=== PATIENT | male | born 1950 | race Caucasian/White ===

== ENCOUNTER → 2021-12-21 | Outpatient (CLI) | payer MEDICARE ==
--- NOTE | 2021-12-21 15:24 | US ---
EXAMINATION TYPE: US kidneys/renal and bladder DATE OF EXAM: 12/21/2021 COMPARISON: NONE CLINICAL HISTORY: N20.0 CALCULUS OF KIDNEY. Rt flank pain but has stopped. EXAM MEASUREMENTS: Right Kidney: 9.2 x 5.0 x 5.7 cm Left Kidney: 9.4 x 4.9 x 5.9 cm Right Kidney: Anterior medial cortical cystic lesion = 0.6 x 0.6 x 0.4 cm Left Kidney: No hydronephrosis or masses seen Bladder: distended, anechoic Right jet seen There is no evidence for hydronephrosis at this point in time. No nephrolithiasis is seen. [employer]olog [employer] m[facility]aughlin 5 mm exophytic round lesion too small to further characterize presumed benign in the right kidney midpole level. The urinary bladder is satisfactorily distended. Bilateral ureteral jets are not seen. IMPRESSION: No hydronephrosis is noted bilaterally.
== END | disposition home or self-care (01) ==
LOC: RADUSWWP 13:54
PROVIDERS: ATTEND Internal Medicine Geriatric Medicine
DX: N20.0 Calculus of kidney (principal)
CPT/HCPCS: 76770

== ENCOUNTER 2023-03-29 07:58 | Emergency (ER) | payer MEDICARE ==
[2023-03-29 08:18] VITALS: BP 118/88; PULSE 70; RESP 20; TEMP 98.3
--- NOTE | 2023-03-29 08:51 | ED ---
Fall HPI - General Chief Complaint: Fall Stated Complaint: fall - lt wrist injury Time Seen by Provider: 03/29/23 08:20 Source: patient, RN notes reviewed Mode of arrival: ambulatory Limitations: no limitations - History of Present Illness Initial Comments: This is a 72-year-old male who presents to the emergency department for a fall. Patient tripped and fell down the last two steps of his ladder and twisted the right ankle. In the process he tried to brace himself with the left hand and is also complaining of pain to the left wrist. He is still able to fully move the hand and ankle and is not in extreme pain at this time. He has also since been ambulating without any problems. Denies hitting his head or sustaining any loss of consciousness. He is not on any blood thinners. Denies any fevers, chills, sore throat, cough, dyspnea, chest pain, palpitations, abdominal pain, nausea, vomiting, diarrhea, back pain, or headaches. MD Complaint: fall - Related Data Home Medications Medication Instructions Recorded Confirmed clonazePAM [KlonoPIN] 0.5 mg PO DAILY PRN 09/29/17 03/29/23 HYDROcodone/APAP 10-325MG [[place] 1 tab PO Q6H PRN 10/06/17 03/29/23 10-325] Rosuvastatin [Crestor] 5 mg PO DAILY 03/29/23 03/29/23 Allergies Allergy/AdvReac Type Severity Reaction Status Date / Time No Known Allergies Allergy Verified 03/29/23 08:18 Review of Systems ROS Statement: Those systems with pertinent positive or pertinent negative responses have been documented in the HPI. ROS Other: All systems not noted in ROS Statement are negative. Past Medical History Additional Past Medical History / Comment(s): Lower extremity neuropathy, chronic back pain secondary to severe spinal stenosis, spondylolisthesis, disc protrusion L4 5 History of Any Multi-Drug Resistant Organisms: None Reported Past Surgical History: Orthopedic Surgery Additional Past Surgical History / Comment(s): Plantar fasciitis surgery in April by career advisor and then surgery by Dr. Strauss, posterior lateral decompression and fusion L4 5 Past Anesthesia/Blood Transfusion Reactions: No Reported Reaction Past Psychological History: Depression Smoking Status: Never smoker Past Alcohol Use History: Rare Past Drug Use History: None Reported - Past Family History Father Family Medical History: Deep Vein Thrombosis (DVT) Additional Family Medical History / Comment(s): Father at age 84 from occupational induced parkinsonism with history of CHF and pacemaker. Sister(s) Family Medical History: Cancer Additional Family Medical History / Comment(s): Patient has one sister with history of malignant colon polyps. Patient does not have any brothers. Mother Additional Family Medical History / Comment(s): Mother at age 76 from a myocardial infarction. Patient has 2 children, one son and one daughter with no major medical problems. General Exam Limitations: no limitations General appearance: alert, in no apparent distress Head exam: Present: atraumatic, normocephalic, normal inspection Respiratory exam: Present: normal lung sounds bilaterally. Absent: respiratory distress, wheezes, rales, rhonchi, stridor Cardiovascular Exam: Present: regular rate, normal rhythm, normal heart sounds. Absent: systolic murmur, diastolic murmur, rubs, gallop, clicks Extremities exam: Present: other (Mild swelling to the dorsal medial aspect of the left wrist with overlying tenderness. Full active and passive range of motion. 2+ radial pulses. Swelling and ecchymosis over the right lateral malleolus. Full ROM. 2+ DP and PT pulses. Capillary refill less than 1 second.) Neurological exam: Present: alert, oriented X3, CN II-XII intact Psychiatric exam: Present: normal affect, normal mood Skin exam: Present: warm, dry, intact, normal color. Absent: rash Course Vital Signs 03/29/23 08:14 Temperature 98.3 F Pulse Rate 70 Respiratory 20 Rate Blood Pressure 118/88 O2 Sat by Pulse 97 Oximetry Medical Decision Making - Medical Decision Making This is a 72-year-old male who presents to the emergency department for left wrist pain and right ankle pain after a fall. Was pt. sent in by a medical professional or institution? @ -No Did you speak to anyone other than the patient for history? @ -No Did you review nursing and triage notes? @ -Yes, and I agree, it is accurate with regards to the patient's symptoms. Were old charts reviewed? @ -No Differential Diagnosis? @ -Differential Ankle Pain/Injury: Fracture, dislocation, contusion, sprain, this is not meant to be an all- inclusive list. EKG interpreted by me (3pts min.)? @ -Not obtained X-rays interpreted by me (1pt min.)? @ -X-ray of the right ankle and left wrist obtained. My interpretation identifies no acute fractures. CT interpreted by me (1pt min.)? @ -Not obtained U/S interpreted by me (1pt. min.)? @ -Not obtained What testing was considered but not performed? (CT, X-rays, U/S, labs)? Why? @ -None What meds were considered but not given? Why? @ -None Did you discuss the management of the patient with other professionals? @ -No Did you reconcile home meds? @ -No Was smoking cessation discussed for >3mins.? @ -No Was critical care preformed (if so, how long)? @ -No Were there social determinants of health that impacted care today? How? (Homelessness, low income, unemployed, alcoholism, drug addiction, transportation, low edu. Level, literacy, decrease access to med. care, custodial, rehab)? @ -No Was there de-escalation of care discussed even if they declined? (Discuss DNR or withdrawal of care, Hospice)? @ -No What co-morbidities impacted this encounter? (DM, HTN, Smoking, COPD, CAD, Cancer, CVA, Hep., AIDS, mental health diagnosis, sleep apnea, morbid obesity)? @ -None Was patient admitted / discharged? @ -Discharged. Patient declined the need for any pain medication in the emergency department. X-ray of the left wrist and right ankle obtained. A very small avulsion fracture to the right ankle could not be entirely excluded. However I advised the patient that he can still bear weight and no intervention would be needed for this regardless. Patient is still ambulating without difficulty. He was given an air stirrup splint for the right ankle as well as an Robinson bandage for the left wrist. Otherwise advised supportive care with ibuprofen and Tylenol as well as applying ice for 15-20 minutes every 2-3 hours. Undiagnosed new problem with uncertain prognosis? @ -None Drug Therapy requiring intensive monitoring for toxicity (Heparin, Nitro, Insulin, Cardizem)? @ -None Were any procedures done? @ -None Diagnosis/symptom? @ -Fall, left wrist sprain, right ankle sprain Acute, or Chronic, or Acute on Chronic? @ -Acute Uncomplicated (without systemic symptoms) or Complicated (systemic symptoms)? @ -Uncomplicated Side effects of treatment? @ -None Exacerbation, Progression, or Severe Exacerbation] @ -Not applicable Poses a threat to life or bodily function? @ -No Return precautions reviewed in depth, the patient is instructed to return to the emergency department with any new, worsening, or concerning symptoms. Patient verbalized understanding. This case was discussed in detail with the attending ED physician, Dr. Webster. Presentation, findings, and treatment plan discussed in detail as well. - Radiology Data Radiology results: report reviewed, image reviewed Disposition Clinical Impression: Fall, Left wrist pain, Right ankle sprain Disposition: HOME SELF-CARE Instructions (If sedation given, give patient instructions): Ankle Sprain (ED), Wrist Sprain (ED) Additional Instructions: Return to the emergency department with any new, worsening, or concerning symptoms. Alternate with ibuprofen and Tylenol as needed for pain relief. Apply ice for 15-20 minutes every 2-3 hours. Follow up with your primary care provider in 1-2 days. Is patient prescribed a controlled substance at d/c from ED?: No Referrals: Lv Fernandes MD [Primary Care Provider] - 1-2 days
--- NOTE | 2023-03-29 10:13 | XR ---
EXAMINATION TYPE: XR ankle complete RT DATE OF EXAM: 03/29/2023 COMPARISON: None HISTORY: Pain after fall TECHNIQUE: Right ankle is examined in 3 views FINDINGS: Soft tissues appear normal. Ankle mortise is intact. There is a small calcification superio r to the distal talus. Clinical correlation with location of the patient's pain is recommended. Small avulsion is not excluded. Acute fractures not otherwise evident. Follow up exams can be performed 7- 10 days from acute trauma for continued pain. Calcaneal heel spurs are present. IMPRESSION: 1. A tiny calcification along the distal anterior superior talus. Correlate with location of patient 's pain. Small avulsion is not excluded.
--- NOTE | 2023-03-29 10:43 | XR ---
EXAMINATION TYPE: XR wrist complete LT DATE OF EXAM: 03/29/2023 COMPARISON: None HISTORY: Pain after fall TECHNIQUE: 4 view left wrist FINDINGS: No acute fractures are evident. Joint spaces are preserved. Alignment is normal. There is p rominent soft tissue swelling over the wrist. Follow up exams can be performed 7-10 days from acute trauma for continued pain. If there is pain at the anatomic snuff box, nuclear medicine bone scan could be performed for additional evaluation. IMPRESSION: 1. No acute osseous abnormality left wrist. 2. Prominent soft tissue swelling left wrist
== END 2023-03-29 11:19 | disposition home or self-care (01) ==
LOC: EC 07:58
DX: S93.401A Sprain of unspecified ligament of right ankle, initial encounter (principal); M25.532 Pain in left wrist; F32.A Depression, unspecified; Z79.899 Other long term (current) drug therapy; W01.0XXA Fall on same level from slipping, tripping and stumbling without subsequent striking against object, initial encounter
CPT/HCPCS: 73110; 73610; 99283; L4350

== ENCOUNTER → 2023-06-26 | Outpatient (CLI) | payer MEDICARE ==
--- NOTE | 2023-06-26 08:21 | US ---
EXAMINATION TYPE: US scrotum with doppler. Grayscale and color Doppler Duplex imaging performed of kitty horton scrotum. DATE OF EXAM: 06/26/2023 COMPARISON: NONE CLINICAL INDICATION: Male, 73 years old with history of N50.819 TESTICULAR PAIN; tiny palpable felt n ear right epidymidis for over 20 years patient states it has slightly grown and is tender EXAM MEASUREMENTS: TESTICLES: Right Testicle: 3.9 x 2.7 x 1.7 cm Left Testicle: 4.3 x 2.6 x 1.9 cm EPIDIDYMIS HEAD: Right Epididymis: 1.1 cm - 2 cystic structures at area of palp that correlate with epi cysts, #1 = 0 .3 x 0.3 x 0.4cm, #2 = 0.4 x 0.4 x 0.5cm Left Epididymis: 1.1 cm Doppler performed to assess for testicular vascularity; good bilateral color flow and waveforms are s een. There is no evidence of testicular torsion. Presence of hydroceles: mild left lateral Presence of varicoceles: no IMPRESSION: 1. 2 epididymal cysts on the right measuring up to 5 mm. 2. Appropriate arterial and venous spectral waveforms to the testes. 3. Mildly heterogenous testes bilaterally. 4. Mild left hydrocele. 5. No intratesticular mass.
== END | disposition home or self-care (01) ==
LOC: RADUSWWP 07:19
PROVIDERS: ATTEND Internal Medicine Geriatric Medicine
DX: N43.3 Hydrocele, unspecified (principal); N50.3 Cyst of epididymis; N50.819 Testicular pain, unspecified
CPT/HCPCS: 76870; 93975

== ENCOUNTER → 2024-06-28 | Outpatient (CLI) | payer MEDICARE ==
--- NOTE | 2024-06-28 11:49 | XR ---
EXAMINATION TYPE: XR thoracic spine complete DATE OF EXAM: 06/28/2024 10:14 AM COMPARISON: None. CLINICAL INDICATION: Male, 74 years old with history of M54.9 Back pain, TECHNIQUE: XR thoracic spine complete view(s) obtained. FINDINGS: There are 12 thoracic type vertebral bodies present. Pedicles are intact. Spondylosis is present. Dis c heights appear preserved. Vertebral body heights are preserved. Alignment is normal. IMPRESSION: 1. No acute osseous abnormalities thoracic spine. [facility], , 06/28/2024 11:47 AM
== END | disposition home or self-care (01) ==
LOC: RADXRMAIN 09:58
PROVIDERS: ATTEND Internal Medicine Geriatric Medicine
DX: M47.814 Spondylosis without myelopathy or radiculopathy, thoracic region (principal)
CPT/HCPCS: 72072

== ENCOUNTER → 2025-03-22 | Outpatient (CLI) | payer MEDICARE ==
[2025-03-22 19:11] LABS: HCT 45.9 % (39.6-50.0); HGB 14.6 g/dL (13.0-17.0); MCH 28.1 pg (27.0-32.0); MCHC 31.8 g/dL (32.0-37.0); MCV 88.3 FL (80.0-97.0); NRBC Per 100 WBC 0 X 10*3/uL (0.00-0.01); Platelet Count 176 X 10*3/uL (140-440); RBC 5.20 X 10*6/uL (4.40-5.60); RDW 14.1 % (11.5-14.5); WBC 6.52 X 10*3/uL (4.50-10.00)
[2025-03-22 19:21] LABS: Anion Gap 9.70 mmol/L (4.00-12.00); Blood Urea Nitrogen 15.8 mg/dL (9.0-27.0); Carbon Dioxide 25.3 mmol/L (21.6-31.8); Chloride 107 mmol/L (96-109); Potassium 5.4 mmol/L (3.5-5.5); Sodium 142 mmol/L (135-145)
== END | disposition home or self-care (01) ==
LOC: LABPAT 13:52
PROVIDERS: ATTEND Internal Medicine Interventional Cardiology
DX: Z01.812 Encounter for preprocedural laboratory examination (principal); R07.9 Chest pain, unspecified; R00.2 Palpitations
CPT/HCPCS: 80051; 82565; 84520; 85027